=== PATIENT | male | born 1970 | race Caucasian/White ===

== ENCOUNTER 2017-10-20 09:59 | Emergency (ER) | payer SELFPAY ==
[2017-10-20] MEDS ORDERED: MORPHINE 4 MG/ML SYR ONE (10:34)
[2017-10-20] MEDS ORDERED: KETOROLAC 30 MG/ML INJ ONE (10:34)
[2017-10-20 10:35] LABS: Absolute Lymphocytes (CBC) 2.9 K/uL (0.7-4.9); Absolute Monocytes 0.9 K/uL (0.1-1.3); Absolute Neutrophil 8.2 K/uL (1.8-8.0); Basophils % 0.9 % (0-1.3); Eosinophils % 1.9 % (0-4.4); Hematocrit 43.1 % (39.6-49.0); Lymphocytes % 23.6 % (15.3-44.8); MCH 29.9 pg (27.0-35.0); MCV 87.7 fL (80-100); MPV 7.8 fL (7.6-11.3); Monocytes % 7.3 % (3.3-12.3); RBC Red Blood Cell Count 4.91 M/uL (4.33-5.43)
[2017-10-20] MEDS ORDERED: ONDANSETRON 4 MG/2 ML VIAL ONE (10:35)
[2017-10-20] MEDS ORDERED: NA CHLORIDE 0.9% 1,000 ML ONE (10:35)
[2017-10-20 10:45] LABS: Urine Bacteria <20 /HPF (NONE SEEN); Urine RBC 20-50 /HPF (NONE SEEN)
[2017-10-20 10:46] LABS: Urine Culture Reflex Order NOT NEEDED; Urine Mucus 2+ /HPF (NONE SEEN)
[2017-10-20 10:47] LABS: Urine Blood 2+ (NEG); Urine Glucose NEGATIVE (NEG); Urine Protein TRACE (NEG); Urine Specific Gravity 1.025 (1.005-1.030)
[2017-10-20 10:52] LABS: ALT/SGPT 26 U/L (12-78); AST/SGOT 19 U/L (15-37); Albumin 3.8 g/dL (3.4-5.0); Alkaline Phosphatase 79 U/L (45-117); Amylase Level 39 U/L (25-115); BUN Blood Urea Nitrogen 14 mg/dL (7-18); Bicarbonate 28 mmol/L (21-32); Bilirubin Direct < 0.1 mg/dL (0-0.2); Bilirubin Total 0.3 mg/dL (0.2-1.0); Glucose Level 95 mg/dL (74-106); Lipase 80 U/L (73-393); Potassium 4.3 mmol/L (3.5-5.1); Protein, Total 7.5 g/dL (6.4-8.2); Sodium Level 143 mmol/L (136-145)
--- NOTE | 2017-10-20 11:07 | RAD REPORT ---
EXAM DESCRIPTION: CT - Stone Protocol - 10/20/2017 10:47 am CLINICAL HISTORY: Right flank pain radiating to the groin COMPARISON: None. TECHNIQUE: Axial 5 mm thick images were obtained without oral or IV contrast. The [id number] span s the entirety of the system including uppermost abdomen and lung bases. All CT scans are performed using dose optimization technique as appropriate and may include automated exposure control or mA/KV adjustment according to patient size. FINDINGS: Mild right-sided hydronephrosis is present secondary to a 3 millimeter UVJ calculus. Right ureter is mildly edematous as is the right kidney. Punctate 1 mm calcification present upper pole ca lyx on the right. No left-sided calculi or hydronephrosis. No suspicious renal masses. Isodense serafin s and pyelonephritis are not excluded on a stone protocol CT scan. Urinary bladder is partially contr acted. No bladder calculi. No suspicious prostate gland or seminal vesicle finding. Imaged portions of the liver, spleen and pancreas show no suspicious findings on non-contrast imaging . No gallbladder or biliary tree abnormality identified. No significant adrenal finding. No suspicious bowel findings. No hernia, mass or bulky lymphadenopathy noted. No free air, free fluid or inflammatory stranding. No significant bony abnormality. IMPRESSION: Mild right-sided hydronephrosis secondary to a 3 mm UVJ calculus. Isodense masses and pyelonephritis are not excluded on stone protocol technique.
--- NOTE | 2017-10-20 12:17 | ER ---
Nurse's Notes [facility] Name: John Abraham Age: 47 yrs Sex: Male : 1970 Arrival Date: 10/20/2017 Time: 10:04 Bed 20 Private MD: Diagnosis: Urinary calculus, unspecified Presentation: 10/20 10:11 Presenting complaint: Patient states: right flank pain that radiates to the right sv groin. Transition of care: patient was not received from another setting of care. Onset of symptoms was October 20, 2017. Care prior to arrival: None. 10:11 Method Of Arrival: Ambulatory sv 10:11 Acuity: CAREN 3 sv 10:56 Risk Assessment: Do you want to hurt yourself or someone else? Patient reports no aj1 desire to harm self or others. Initial Sepsis Screen: Does the patient meet any 2 criteria? No. Patient's initial sepsis screen is negative. Does the patient have a suspected source of infection? No. Patient's initial sepsis screen is negative. Historical: - Allergies: 10:12 No Known Allergies; sv - Home Meds: 10:12 None [Active]; sv - PMHx: 10:12 Kidney stones; PE; sv - PSHx: 10:12 None; sv - Immunization history:: Adult Immunizations up to date. - Social history:: Smoking status: Patient uses tobacco products, smokes one pack cigarettes per day. - Ebola Screening: : No symptoms or risks identified at this time. Screenin:15 Abuse screen: Denies threats or abuse. Denies injuries from another. Nutritional aj1 screening: No deficits noted. Tuberculosis screening: No symptoms or risk factors identified. 12:49 Fall Risk None identified. aj1 Assessment: 10:15 General: Appears in no apparent distress. uncomfortable, Behavior is calm, cooperative, aj1 appropriate for age. Pain: Complains of pain in anterior aspect of right lateral abdomen Pain radiates to groin Pain currently is 8 out of 10 on a pain scale. at worst was 10 out of 10 on a pain scale. Quality of pain is described as sharp, Pain began at approximately 0730 this morning Is intermittent. Neuro: Level of Consciousness is awake, alert, obeys commands, Oriented to person, place, time, situation, Gait is steady, Speech is normal, Facial symmetry appears normal. Cardiovascular: Patient's skin is warm and dry. Respiratory: Airway is patent Respiratory effort is even, unlabored, Respiratory pattern is regular, symmetrical. GI: Abdomen is distended, Bowel sounds present X 4 quads. Abd is soft and non tender X 4 quads. Patient currently denies diarrhea, vomiting. : Reports burning with urination, urinary frequency, flank pain. EENT: No signs and/or symptoms were reported regarding the EENT system. Derm: No signs and/or symptoms reported regarding the dermatologic system. Skin is pink, warm \T\ dry. normal. Musculoskeletal: No signs and/or symptoms reported regarding the musculoskeletal system. Circulation, motion, and sensation intact. 11:27 Reassessment: Patient appears in no apparent distress at this time. No changes from aj1 previously documented assessment. Patient and/or family updated on plan of care and expected duration. Pain level reassessed. Patient is alert, oriented x 3, equal unlabored respirations, skin warm/dry/pink. 12:49 Reassessment: Patient appears in no apparent distress at this time. No changes from aj1 previously documented assessment. Patient and/or family updated on plan of care and expected duration. Pain level reassessed. Patient is alert, oriented x 3, equal unlabored respirations, skin warm/dry/pink. Vital Signs: 10:12 BP 122 / 83; Pulse 74; Resp 20; Pulse Ox 97% ; Weight 113.4 kg; Height 5 ft. 10 in. sv (177.80 cm); Pain 9/10; 11:27 BP 111 / 64; Pulse 64; Resp 18; Pulse Ox 96% on R/A; aj1 12:49 BP 112 / 75; Pulse 68; Resp 18; Pulse Ox 99% ; aj1 10:12 Body Mass Index 35.87 (113.40 kg, 177.80 cm) sv ED Course: 10:04 Patient arrived in ED. as 10:12 Triage completed. sv 10:13 Sun Walls, RN is Primary Nurse. aj1 10:15 Patient has correct armband on for positive identification. Bed in low position. Call aj1 light in reach. Side rails up X 1. 10:15 No provider procedures requiring assistance completed. aj1 10:16 Raimundo Hansen PA is PHCP. [facility] 10:16 Milton Zelaya MD is Attending Physician. [facility] 10:33 Initial lab(s) drawn, by me, sent to lab. Inserted saline lock: 20 gauge in left aj1 antecubital area, using aseptic technique. Blood collected. 10:46 CT completed. Patient tolerated procedure well. Patient moved to CT via wheelchair. Patient moved back from CT. 10:47 CT Stone Protocol In Process Unspecified. EDMS 12:15 Latricia Suarez MD is Referral Physician. [facility] 12:49 IV discontinued, intact, bleeding controlled, No redness/swelling at site. Pressure aj1 dressing applied. Administered Medications: 10:39 Drug: Zofran 4 mg Route: IVP; Site: left antecubital; aj1 12:51 Follow up: Response: No adverse reaction aj1 10:39 Drug: Ketorolac 30 mg Route: IVP; Site: left antecubital; aj1 12:51 Follow up: Response: No adverse reaction aj1 10:40 Drug: NS 0.9% 1000 ml Route: IV; Rate: 1 bolus; Site: left antecubital; aj1 12:50 Follow up: IV Status: Completed infusion; IV Intake: 1000ml aj1 10:40 Drug: morphine 4 mg Route: IVP; Site: left antecubital; aj1 12:50 Follow up: Response: No adverse reaction aj1 Intake: 12:50 IV: 1000ml; Total: 1000ml. aj1 Outcome: 12:16 Discharge ordered by . [facility] 12:50 Discharged to home ambulatory. aj1 12:50 Condition: good 12:50 Discharge instructions given to patient, Instructed on discharge instructions, follow up and referral plans. no drinking with medication, no driving heavy equipment, medication usage, Demonstrated understanding of instructions, follow-up care, medications, Prescriptions given X 3. 12:51 Patient left the ED. em1 Signatures: Dispatcher [employer] EDMS Sun Walls RN RN aj1 Rema Pillai RN RN sv Mickail, Joel, PA PA jmm Jones, Susan sj Martinez, Grant Jackson em1
--- NOTE | 2017-10-20 12:17 | EDPHYS ---
Physician Documentation [facility] Name: John Abraham Age: 47 yrs Sex: Male : 1970 Arrival Date: 10/20/2017 Time: 10:04 Bed 20 Private MD: ED Physician Milton Zelaya HPI: 10/20 10:23 This 47 yrs old Male presents to ER via Ambulatory with complaints of Abdominal Pain. jmm 10:25 The patient presents with abdominal pain right lower quadrant. Onset: The jmm symptoms/episode began/occurred acutely, 2 hour(s) ago. The symptoms radiate to groin. Associated signs and symptoms: Pertinent positives: dysuria, Pertinent negatives: fever, vomiting. This is a 47 year old male with a history of PE that presents to the ED with right flank pain beginning acutely this morning approx 2 hours ago. Patient states he had a kidney stone 20 years ago. The patient radiates to his right groin. Denies fever, denies vomiting. . Historical: - Allergies: 10:12 No Known Allergies; sv - Home Meds: 10:12 None [Active]; sv - PMHx: 10:12 Kidney stones; PE; sv - PSHx: 10:12 None; sv - Immunization history:: Adult Immunizations up to date. - Social history:: Smoking status: Patient uses tobacco products, smokes one pack cigarettes per day. - Ebola Screening: : No symptoms or risks identified at this time. ROS: 10:25 Cardiovascular: Negative for chest pain, palpitations, and edema, Respiratory: Negative jmm for shortness of breath, cough, wheezing, and pleuritic chest pain. 10:25 Constitutional: Negative for fever. 10:25 Abdomen/GI: Positive for abdominal pain, nausea. 10:25 Back: Positive for flank pain. 10:25 All other systems are negative. Exam: 10:25 Head/Face: atraumatic. Eyes: EOMI, no conjunctival erythema appreciated ENT: Moist jmm Mucus Membranes Neck: Trachea midline, Supple 10:25 Constitutional: The patient appears alert, awake, uncomfortable. 10:25 Cardiovascular: Rate: normal, Rhythm: regular. 10:25 Respiratory: the patient does not display signs of respiratory distress, Respirations: normal. 10:25 Abdomen/GI: Inspection: abdomen appears normal, Bowel sounds: normal, Palpation: soft, mild abdominal tenderness, in the right lower quadrant. 10:25 Back: CVA tenderness, is absent. 10:25 Musculoskeletal/extremity: ROM: intact in all extremities. 10:25 Skin: Appearance: Color: normal in color. 10:25 Neuro: Orientation: is normal, Mentation: is normal, Memory: is normal, Gait: is steady. 10:25 Psych: Behavior/mood is pleasant, cooperative. Vital Signs: 10:12 BP 122 / 83; Pulse 74; Resp 20; Pulse Ox 97% ; Weight 113.4 kg; Height 5 ft. 10 in. sv (177.80 cm); Pain 9/10; 11:27 BP 111 / 64; Pulse 64; Resp 18; Pulse Ox 96% on R/A; aj1 12:49 BP 112 / 75; Pulse 68; Resp 18; Pulse Ox 99% ; aj1 10:12 Body Mass Index 35.87 (113.40 kg, 177.80 cm) sv MDM: 10:22 Patient medically screened. [facility] 12:15 Data reviewed: vital signs, nurses notes, lab test result(s), radiologic studies, CT [facility] scan. Counseling: I had a detailed discussion with the patient and/or guardian regarding: the historical points, exam findings, and any diagnostic results supporting the discharge/admit diagnosis, lab results, radiology results, the need for outpatient follow up, to return to the emergency department if symptoms worsen or persist or if there are any questions or concerns that arise at home. 10/20 10:24 Order name: Amylase, Serum [facility] 10/20 10:24 Order name: Basic Metabolic Panel [facility] 10/20 10:24 Order name: CBC with Diff; Complete Time: 11:24 [facility] 10/20 10:24 Order name: Creatinine for Radiology; Complete Time: 11:24 [facility] 10/20 10:24 Order name: Hepatic Function [facility] 10/20 10:24 Order name: Lipase; Complete Time: 11:24 [facility] 10/20 10:24 Order name: Urine Microscopic Only; Complete Time: 11:24 [facility] 10/20 10:24 Order name: CT Stone Protocol; Complete Time: 11:24 [facility] 10/20 10:24 Order name: Amylase Level; Complete Time: 11:24 [facility] 10/20 10:24 Order name: Basic Metabolic Panel; Complete Time: 11:24 [facility] 10/20 10:24 Order name: Liver (Hepatic) Function; Complete Time: 11:24 [facility] 10/20 10:27 Order name: Urine Dipstick--Ancillary (enter results); Complete Time: 11:24 [facility] 10/20 10:24 Order name: IV Saline Lock; Complete Time: 10:30 [facility] 10/20 10:24 Order name: Labs collected and sent; Complete Time: 10:30 [facility] 10/20 10:24 Order name: Urine Dipstick-Ancillary (obtain specimen); Complete Time: 10:26 [facility] Administered Medications: 10:39 Drug: Zofran 4 mg Route: IVP; Site: left antecubital; aj1 12:51 Follow up: Response: No adverse reaction aj1 10:39 Drug: Ketorolac 30 mg Route: IVP; Site: left antecubital; aj1 12:51 Follow up: Response: No adverse reaction aj1 10:40 Drug: NS 0.9% 1000 ml Route: IV; Rate: 1 bolus; Site: left antecubital; aj1 12:50 Follow up: IV Status: Completed infusion; IV Intake: 1000ml aj1 10:40 Drug: morphine 4 mg Route: IVP; Site: left antecubital; aj1 12:50 Follow up: Response: No adverse reaction aj1 Disposition: 17:13 Co-signature as Attending Physician, Milton Zelaya MD. rn Disposition: 10/20/17 12:16 Discharged to Home. Impression: Urinary calculus, unspecified. - Condition is Stable. - Discharge Instructions: Kidney Stones. - Prescriptions for Tylenol- Codeine #3 300-30 mg Oral Tablet - take 1 tablet by ORAL route every 6 hours As needed; 12 tablet. Zofran 4 mg Oral Tablet - take 1 tablet by ORAL route every 12 hours As needed; 20 tablet. Flomax 0.4 mg Oral Capsule, Sust. Release 24 hr - take 1 capsule by ORAL route once daily 1/2 hour following the same meal each day; 10 capsule. - Medication Reconciliation Form, Thank You Letter, Antibiotic Education, Prescription Opioid Use form. - Follow up: Latricia Suarez MD; When: 2 - 3 days; Reason: Continuance of care. Signatures: Dispatcher [employer] [facility] Sun Walls RN RN aj1 Freya, RemaSANDHYA morris RN, Joel, PA PA jmm Nieto, Roman, MD MD rn Martinez, Grant em1 Corrections: (The following items were deleted from the chart) 12:51 12:16 10/20/2017 12:16 Discharged to Home. Impression: Urinary calculus, unspecified. em1 Condition is Stable. Forms are Medication Reconciliation Form, Thank You Letter, Antibiotic Education, Prescription Opioid Use. Follow up: Latricia Suarez; When: 2 - 3 days; Reason: Continuance of care. elinor
== END 2017-10-20 12:51 | disposition home or self-care (01) ==
LOC: ER 09:59
DX: N20.9 Urinary calculus, unspecified (principal); F17.210 Nicotine dependence, cigarettes, uncomplicated; Z87.442 Personal history of urinary calculi
CPT/HCPCS: 36415; 74176; 76377; 80048; 80076; 81003; 81015; 82150; 83690; 85025; 96361; 96374; 96375; 99284; J2405; J7030

== ENCOUNTER 2018-05-01 21:01 | Emergency (ER) | payer SELFPAY ==
[2018-05-01] MEDS ORDERED: NA CHLORIDE 0.9% 500 ML ONE (22:55)
[2018-05-01] MEDS ORDERED: MEPERIDINE HCL 25 MG/0.5 ML ONE (22:55)
[2018-05-01 23:02] LABS: Absolute Lymphocytes (CBC) 4.1 K/uL (0.7-4.9); Absolute Monocytes 1.1 K/uL (0.1-1.3); Absolute Neutrophil 9.9 K/uL (1.8-8.0); Basophils % 1.1 % (0-1.3); Hematocrit 41.9 % (39.6-49.0); Lymphocytes % 26.4 % (15.3-44.8); Monocytes % 6.8 % (3.3-12.3); RBC Red Blood Cell Count 4.81 M/uL (4.33-5.43)
[2018-05-01 23:42] LABS: BUN Blood Urea Nitrogen 14 mg/dL (7-18); Bicarbonate 28 mmol/L (21-32); C-Reactive Protein 8.08 mg/L (<3.00); Glucose Level 98 mg/dL (74-106); Potassium 3.7 mmol/L (3.5-5.1); Sodium Level 141 mmol/L (136-145)
[2018-05-02] MEDS ORDERED: NA CHLORIDE 0.9% 500 ML ONE (00:36)
[2018-05-02 01:38] LABS: Urine Blood TRACE (NEG); Urine Glucose NEGATIVE (NEG); Urine Protein NEGATIVE (NEG)
--- NOTE | 2018-05-02 01:50 | ER ---
Nurse's Notes [facility] Name: John Abraham Age: 47 yrs Sex: Male : 1970 Arrival Date: 05/01/2018 Time: 21:04 Bed 7 Private MD: Diagnosis: Radiculopathy, lumbar region;Subclinical hypothyroidism;Enteritis Presentation: 05/01 21:33 Presenting complaint: Patient states: "I have bad swelling my lower back and I have bad aj1 shooting pains into both of my feet and I just overall have no energy" Patient reports that he noticed the swelling is his back in the last couple of days but the other symptoms have been there for months. Patient reports that he is suppose to take blood thinners because he has had PEs before, but he decided to take himself off of them because he didn't want to take them anymore. States "My lungs hurt sometimes, but I don't have chest pain" Patient also reports shortness of breath on activity and a persistent cough. Transition of care: patient was not received from another setting of care. Onset of symptoms was 2018. Risk Assessment: Do you want to hurt yourself or someone else? Patient reports no desire to harm self or others. Initial Sepsis Screen: Does the patient meet any 2 criteria? No. Patient's initial sepsis screen is negative. Does the patient have a suspected source of infection? No. Patient's initial sepsis screen is negative. Care prior to arrival: None. 21:33 Method Of Arrival: Ambulatory aj1 21:33 Acuity: CAREN 3 aj1 Triage Assessment: 21:38 General: Appears in no apparent distress. comfortable, Behavior is calm, cooperative, aj1 appropriate for age. Pain: Complains of pain in low back area and right calf Pain radiates to right leg and left leg Pain currently is 8 out of 10 on a pain scale. Neuro: Level of Consciousness is awake, alert, obeys commands. Cardiovascular: Heart tones S1 S2 present Patient's skin is warm and dry. Respiratory: Reports shortness of breath on exertion cough that is productive, Airway is patent Respiratory effort is even, unlabored, Respiratory pattern is regular, symmetrical, Breath sounds are clear bilaterally. Historical: - Allergies: 21:38 No Known Allergies; aj1 - Home Meds: 21:38 None [Active]; aj1 - PMHx: 21:38 Kidney stones; PE; aj1 - PSHx: 21:38 None; aj1 - Immunization history:: Flu vaccine is not up to date. - Social history:: Smoking status: Patient uses tobacco products, smokes one pack cigarettes per day. - Ebola Screening: : Patient denies travel to an Ebola-affected area in the 21 days before illness onset. Screenin:26 Abuse screen: Denies threats or abuse. Denies injuries from another. Nutritional ed1 screening: No deficits noted. Tuberculosis screening: No symptoms or risk factors identified. Fall Risk None identified. Assessment: 22:00 Reassessment: I agree with above assessment. lp1 22:26 Reassessment: Patient appears in no apparent distress at this time. No changes from ed1 previously documented assessment. Patient and/or family updated on plan of care and expected duration. Pain level reassessed. Patient is alert, oriented x 3, equal unlabored respirations, skin warm/dry/pink. Patient states symptoms have not improved. 23:51 Reassessment: Patient appears in no apparent distress at this time. Patient and/or ed1 family updated on plan of care and expected duration. Pain level reassessed. Patient is alert, oriented x 3, equal unlabored respirations, skin warm/dry/pink. Patient states feeling better. Patient states symptoms have improved. 05/02 01:02 Reassessment: Patient appears in no apparent distress at this time. Patient and/or ed1 family updated on plan of care and expected duration. Pain level reassessed. Patient is alert, oriented x 3, equal unlabored respirations, skin warm/dry/pink. Patient states feeling better. Patient states symptoms have improved. 03:25 Reassessment: Patient appears in no apparent distress at this time. Patient and/or ed1 family updated on plan of care and expected duration. Pain level reassessed. Patient is alert, oriented x 3, equal unlabored respirations, skin warm/dry/pink. Patient denies pain at this time. Patient states feeling better. Patient states symptoms have improved. Vital Signs: 05/01 21:38 BP 103 / 79; Pulse 72; Resp 18; Temp 97.6; Pulse Ox 98% on R/A; Weight 117.93 kg (R); aj1 Height 5 ft. 10 in. (177.80 cm) (R); Pain 8/10; 22:26 BP 112 / 69; Pulse 71; Resp 16; Pulse Ox 97% on R/A; Pain 8/10; ed1 23:02 BP 105 / 68; Pulse 65; Resp 18; Pulse Ox 98% on R/A; tl2 23:51 BP 92 / 58; Pulse 68; Resp 16; Pulse Ox 96% on R/A; Pain 4/10; ed1 01/14 01:02 BP 104 / 59; Pulse 69; Resp 18; Pulse Ox 97% on R/A; Pain 0/10; ed1 03:25 BP 122 / 74; Pulse 70; Resp 17; Temp 97.4(O); Pulse Ox 100% on R/A; Pain 0/10; ed1 05/01 21:38 Body Mass Index 37.31 (117.93 kg, 177.80 cm) aj1 ED Course: 05/01 21:04 Patient arrived in ED. es 21:38 Triage completed. aj1 21:38 Arm band placed on Patient placed in waiting room, Patient notified of wait time. aj1 22:17 India Duarte LVN is Primary Nurse. ed1 22:26 Patient has correct armband on for positive identification. Placed in gown. Bed in low ed1 position. Call light in reach. Side rails up X 1. Adult w/ patient. gambling monitor on. Pulse ox on. NIBP on. 22:27 Milton Zelaya MD is Attending Physician. rn 22:27 Awaiting ED provider evaluation. ed1 22:53 Initial lab(s) drawn, by ED staff, sent to lab. Inserted saline lock: 20 gauge in right ed1 antecubital area, using aseptic technique. Blood collected. 23:38 Radiology exam delayed due to lab results not completed at this time. (BUN/Creatinine). kw1 23:51 Notified ED physician of vital signs. ed1 14 00:[address] via stretcher. kw1 00:23 CT Lumbar Spine Wo Con In Process Unspecified. EDMS 00:23 CT completed. Patient tolerated procedure well. Patient moved back from CT. kw1 00:24 CT Abd/Pelvis - W/Contrast In Process Unspecified. EDMS 01:05 Appears to be sleeping. Awaiting radiology results. ed1 03:25 No provider procedures requiring assistance completed. IV discontinued, intact, ed1 bleeding controlled, No redness/swelling at site. Pressure dressing applied. Administered Medications: 05/01 22:53 Drug: Demerol 25 mg Route: IVP; Site: right antecubital; tl2 05/02 01:03 Follow up: Response: No adverse reaction; Pain is decreased ed1 05/01 22:53 Drug: NS 0.9% 500 ml Route: IV; Rate: bolus; Site: right antecubital; ed1 05/02 01:03 Follow up: IV Status: Completed infusion; IV Intake: 500ml ed1 00:31 Drug: NS 0.9% 500 ml Route: IV; Rate: bolus; Site: right antecubital; tl2 01:05 Follow up: IV Status: Completed infusion; IV Intake: 500ml ed1 02:25 Follow up: IV Status: Completed infusion; IV Intake: 500ml ed1 01:54 Drug: Flagyl 500 mg Volume: 100 ml; Route: IVPB; Rate: 200 ml/hr; Infused Over: 30 lp1 mins; Site: right antecubital; 02:24 Follow up: Response: No adverse reaction; IV Status: Completed infusion ed1 02:25 Drug: Cipro 400 mg Volume: 200 ml; Route: IVPB; Infused Over: 60 mins; Site: right ed1 antecubital; 03:28 Follow up: IV Status: Completed infusion; IV Intake: 200ml ed1 Intake: 01:03 IV: 500ml; Total: 500ml. ed1 01:05 IV: 500ml; Total: 1000ml. ed1 02:25 IV: 500ml; Total: 1500ml. ed1 03:28 IV: 200ml; Total: 1700ml. ed1 Outcome: 01:49 Discharge ordered by . rn 03:25 Discharged to home ambulatory, with significant other. ed1 03:25 Condition: good 03:25 Discharge instructions given to patient, family, Instructed on discharge instructions, follow up and referral plans. medication usage, Demonstrated understanding of instructions, follow-up care, medications, Prescriptions given X 3. 03:27 Patient left the ED. ed1 Signatures: Dispatcher [employer] EDMS Sun Walls RN RN aj1 Ban Wakefield Roman, MD MD rn India Duarte LVN DIRECT CARE STAFFER ed1 Kina Lowry RN RN lp1 Nabila Becker RN RN tl2 Tamela Briggs kw1 Corrections: (The following items were deleted from the chart) 01:05 01:02 Pulse 69bpm; Resp 18bpm; Pulse Ox 97% RA; Pain 210; ed1 ed1
--- NOTE | 2018-05-02 01:50 | EDPHYS ---
Physician Documentation [facility] Name: John Abraham Age: 47 yrs Sex: Male : 1970 Arrival Date: 05/01/2018 Time: 21:04 Bed 7 Private MD: ED Physician Milton Zelaya HPI: 05/02 00:17 This 47 yrs old Male presents to ER via Ambulatory with complaints of rn Swelling lower back,shooting burning pain in legs. 00:17 The patient presents with pain that is acute. The symptoms are located in the low back. rn Onset: The symptoms/episode began/occurred 4 day(s) ago. The pain radiates to the right leg and left leg. Modifying factors: The patient symptoms are alleviated by nothing, the patient symptoms are aggravated by any movement. Severity of symptoms: At their worst the symptoms were moderate, in the emergency department the symptoms are unchanged. The patient has not experienced similar symptoms in the past. Reports a few days of low back pain, feels swollen, reports pain shoots down both legs, has been having severe fatigue and generalized weakness over last few months, no fever, no IV drug use. Denies trauma or previous back problems. Also reports feeling constipation and "no power" when having bowel movements. + urinary urgency but no incontinence.. Historical: - Allergies: 05/01 21:38 No Known Allergies; aj1 - Home Meds: 21:38 None [Active]; aj1 - PMHx: 21:38 Kidney stones; PE; aj1 - PSHx: 21:38 None; aj1 - Immunization history:: Flu vaccine is not up to date. - Social history:: Smoking status: Patient uses tobacco products, smokes one pack cigarettes per day. - Ebola Screening: : Patient denies travel to an Ebola-affected area in the 21 days before illness onset. ROS: 05/02 00:19 Constitutional: Negative for fever, chills, and weight loss, Eyes: Negative for injury, rn pain, redness, and discharge, Neck: Negative for injury, pain, and swelling, Cardiovascular: Negative for chest pain, palpitations, and edema, Respiratory: Negative for shortness of breath, cough, wheezing, and pleuritic chest pain, Abdomen/GI: + constipation Back: + low back pain MS/Extremity: Negative for injury and deformity, Skin: Negative for injury, rash, and discoloration, Neuro: Negative for headache, and seizure. Exam: 00:19 Constitutional: Overweight male, no acute distress, appears fatigued. Head/Face: rn Normocephalic, atraumatic. Eyes: Pupils equal round and reactive to light, extra-ocular motions intact. Lids and lashes normal. Conjunctiva and sclera are non-icteric and not injected. Cornea within normal limits. Periorbital areas with no swelling, redness, or edema. ENT: dry MM Neck: Trachea midline, no thyromegaly or masses palpated, and no cervical lymphadenopathy. Supple, full range of motion without nuchal rigidity, or vertebral point tenderness. No Meningismus. Cardiovascular: Regular rate and rhythm with a normal S1 and S2. No gallops, murmurs, or rubs. No JVD. No pulse deficits. Respiratory: Lungs have equal breath sounds bilaterally, clear to auscultation Abdomen/GI: soft, non-tender Back: + lower back tenderness perispinal, no deformities, no skin changes, no fluctuance MS/ Extremity: Pulses equal, no cyanosis. Neurovascular intact. Full, normal range of motion. Equal circumference. Neuro: Awake and alert, GCS 15, oriented to person, place, time, and situation. Cranial nerves II-XII grossly intact. Motor strength 5/5 in all extremities. Sensory grossly intact. Vital Signs: 05/01 21:38 BP 103 / 79; Pulse 72; Resp 18; Temp 97.6; Pulse Ox 98% on R/A; Weight 117.93 kg (R); aj1 Height 5 ft. 10 in. (177.80 cm) (R); Pain 8/10; 22:26 BP 112 / 69; Pulse 71; Resp 16; Pulse Ox 97% on R/A; Pain 8/10; ed1 23:02 BP 105 / 68; Pulse 65; Resp 18; Pulse Ox 98% on R/A; tl2 23:51 BP 92 / 58; Pulse 68; Resp 16; Pulse Ox 96% on R/A; Pain 4/10; ed1 05/02 01:02 BP 104 / 59; Pulse 69; Resp 18; Pulse Ox 97% on R/A; Pain 0/10; ed1 03:25 BP 122 / 74; Pulse 70; Resp 17; Temp 97.4(O); Pulse Ox 100% on R/A; Pain 0/10; ed1 05/01 21:38 Body Mass Index 37.31 (117.93 kg, 177.80 cm) aj1 MDM: 05/01 22:27 Patient medically screened. rn 05/02 01:47 Differential diagnosis: arthritis, chronic back pain, Osteoarthritis ruptured disc, rn colitis, enteritis, hypothyroidism. Data reviewed: vital signs, nurses notes, lab test result(s), radiologic studies, CT scan, and as a result, I will discharge patient. Counseling: I had a detailed discussion with the patient and/or guardian regarding: the historical points, exam findings, and any diagnostic results supporting the discharge/admit diagnosis, lab results, radiology results, the need for outpatient follow up, to return to the emergency department if symptoms worsen or persist or if there are any questions or concerns that arise at home. Response to treatment: the patient's symptoms have mildly improved after treatment, and as a result, I will discharge patient. Special discussion: I discussed with the patient/guardian in detail that at this point there is no indication for admission to the hospital. It is understood, however, that if the symptoms persist or worsen the patient needs to return immediately for re-evaluation. Based on the history and exam findings, there is no indication for further emergent testing or inpatient evaluation. I discussed with the patient/guardian the need to see the primary care provider for further evaluation of the symptoms. ED course: Pt with subclinical hypothyroidism, enteritis, and likely lumbar radiculopathy, will dc home with abx for enteritis, steroids for radiculopathy, and instruction for pcp f/u for thyroid management. . 05/01 22:38 Order name: CBC with Diff; Complete Time: 23:43 rn 05/01 22:38 Order name: Basic Metabolic Panel; Complete Time: 23:52 rn 05/01 22:38 Order name: Westergren Sedrate; Complete Time: 23:43 rn 05/01 22:38 Order name: C-Reactive Protein; Complete Time: 23:52 rn 05/01 22:38 Order name: Bullock Screen Profile; Complete Time: 23:43 rn 05/01 22:38 Order name: TSH; Complete Time: 23:52 rn 05/01 22:38 Order name: CT Lumbar Spine Wo Con rn 05/01 22:38 Order name: CT Abd/Pelvis - W/Contrast rn 05/01 22:38 Order name: T4 Free; Complete Time: 23:52 rn 05/02 00:52 Order name: Urine Dipstick--Ancillary (enter results) ag4 05/01 22:38 Order name: IV Start; Complete Time: 22:53 rn 05/02 00:19 Order name: Urine Dipstick-Ancillary (obtain specimen); Complete Time: 01:06 rn Administered Medications: 05/01 22:53 Drug: Demerol 25 mg Route: IVP; Site: right antecubital; tl2 05/02 01:03 Follow up: Response: No adverse reaction; Pain is decreased ed1 05/01 22:53 Drug: NS 0.9% 500 ml Route: IV; Rate: bolus; Site: right antecubital; ed1 05/02 01:03 Follow up: IV Status: Completed infusion; IV Intake: 500ml ed1 00:31 Drug: NS 0.9% 500 ml Route: IV; Rate: bolus; Site: right antecubital; tl2 01:05 Follow up: IV Status: Completed infusion; IV Intake: 500ml ed1 02:25 Follow up: IV Status: Completed infusion; IV Intake: 500ml ed1 01:54 Drug: Flagyl 500 mg Volume: 100 ml; Route: IVPB; Rate: 200 ml/hr; Infused Over: 30 lp1 mins; Site: right antecubital; 02:24 Follow up: Response: No adverse reaction; IV Status: Completed infusion ed1 02:25 Drug: Cipro 400 mg Volume: 200 ml; Route: IVPB; Infused Over: 60 mins; Site: right ed1 antecubital; 03:28 Follow up: IV Status: Completed infusion; IV Intake: 200ml ed1 Disposition: 05/02/18 01:49 Discharged to Home. Impression: Radiculopathy, lumbar region, Subclinical hypothyroidism, Enteritis. - Condition is Stable. - Discharge Instructions: Lumbosacral Radiculopathy, Back Exercises. - Prescriptions for Cipro 500 mg Oral Tablet - take 1 tablet by ORAL route every 12 hours for 10 days; 20 tablet. Flagyl 500 mg Oral Tablet - take 1 tablet by ORAL route every 8 hours for 10 days; 30 tablet. Medrol (Ventura) 4 mg Oral Tablets, Dose Pack - take 1 tablet by ORAL route as directed - follow package instructions; 1 packet. - Medication Reconciliation Form, Thank You Letter, Antibiotic Education, Prescription Opioid Use form. - Follow up: Private Physician; When: As needed; Reason: Recheck today's complaints, Re-evaluation by your physician. - Problem is an ongoing problem. - Symptoms have improved. Signatures: Dispatcher [employer] EDMS Sun Walls RN RN aj1 Milton Zelaya MD MD rn Riggs, Erika, LVN INSPECTOR ALIGNING ed1 Kina Lowry RN RN lp1 Nabila Becker RN RN tl2 Corrections: (The following items were deleted from the chart) 03:27 01:49 05/02/2018 01:49 Discharged to Home. Impression: Radiculopathy, lumbar region; ed1 Subclinical hypothyroidism; Enteritis. Condition is Stable. Forms are Medication Reconciliation Form, Thank You Letter, Antibiotic Education, Prescription Opioid Use. Follow up: Private Physician; When: As needed; Reason: Recheck today's complaints, Re-evaluation by your physician. Problem is an ongoing problem. Symptoms have improved. rn
[2018-05-02] MEDS ORDERED: METRONIDAZOLE 500mg IVPB 500 MG/100 ML BAG IV ONE (01:59)
[2018-05-02] MEDS ORDERED: CIPROFLOXACIN 400mg IV 400 MG/200 ML BAG IV ONE (01:59)
--- NOTE | 2018-05-02 08:41 | RAD REPORT ---
EXAM DESCRIPTION: CTAbdomen Pelvis W Contrast - 05/02/2018 7:00 am CLINICAL HISTORY: Abdominal pain. IV contrast only COMPARISON: Stone Protocol dated 10/20/2017 TECHNIQUE: Biphasic CT imaging of the abdomen and pelvis was performed with 100 ml non-ionic IV cont rast. All CT scans are performed using dose optimization technique as appropriate and may include automated exposure control or mA/KV adjustment according to patient size. FINDINGS: Linear subsegmental atelectasis in the posterior lung bases. Mild fatty liver is noted with several small low-density lesions. No aggressive liver lesion or intra hepatic biliary dilatation. The spleen, pancreas, adrenal glands and kidneys are within normal limits . No bowel obstruction, free air, free fluid or abscess. The appendix is normal. No evidence of signi ficant lymphadenopathy. Mild lumbosacral degenerative changes. IMPRESSION: No acute intra-abdominal or pelvic finding.
--- NOTE | 2018-05-02 08:47 | RAD REPORT ---
EXAM DESCRIPTION: CT - Spine Lumbar Wo Con - 05/02/2018 6:59 am CLINICAL HISTORY: Radiculopathy. weakness lower ext, back pain COMPARISON: No comparisons TECHNIQUE: Axial noncontrast CT imaging of the lumbar spine was performed with coronal and sagittal re-formatted images. All CT scans are performed using dose optimization technique as appropriate and may include automated exposure control or mA/KV adjustment according to patient size. FINDINGS: No acute lumbar spine fracture seen. No aggressive marrow pattern or malalignment. Paraspinal tissues are normal in thickness. No paraspinal abscess or hematoma seen. Degenerative disc disease with vacuum disc degeneration and posterior disc bulge at L5-S1. IMPRESSION: No acute lumbar spine abnormality. Moderate spondylosis L5-S1. Consider MRI follow-up for assessment of disc disease if clinically desired.
== END 2018-05-02 03:27 | disposition home or self-care (01) ==
LOC: ER 21:01
DX: M54.16 Radiculopathy, lumbar region (principal); E02 Subclinical iodine-deficiency hypothyroidism; K52.9 Noninfective gastroenteritis and colitis, unspecified; Z72.0 Tobacco use; F17.210 Nicotine dependence, cigarettes, uncomplicated
CPT/HCPCS: 36415; 72131; 74177; 80048; 81003; 84439; 84443; 85025; 85652; 86140; 86308; 96361; 96365; 96367; 96375; 99285; J0744; J2175; Q9967

== ENCOUNTER 2018-05-23 21:33 | Emergency (ER) | payer SELFPAY ==
[2018-05-24 00:03] LABS: Absolute Lymphocytes (CBC) 2.7 K/uL (0.7-4.9); Absolute Monocytes 0.9 K/uL (0.1-1.3); Absolute Neutrophil 9.6 K/uL (1.8-8.0); Basophils % 0.5 % (0-1.3); Eosinophils % 2.5 % (0-4.4); Hematocrit 40.2 % (39.6-49.0); Monocytes % 6.7 % (3.3-12.3); RBC Red Blood Cell Count 4.58 M/uL (4.33-5.43)
[2018-05-24 00:15] LABS: ALT/SGPT 28 U/L (12-78); AST/SGOT 15 U/L (15-37); Albumin 3.2 g/dL (3.4-5.0); Alkaline Phosphatase 79 U/L (45-117); BUN Blood Urea Nitrogen 16 mg/dL (7-18); Bicarbonate 27 mmol/L (21-32); Bilirubin Direct < 0.1 mg/dL (0-0.2); Bilirubin Total 0.2 mg/dL (0.2-1.0); Glucose Level 182 mg/dL (74-106); Lipase 78 U/L (73-393); Potassium 3.8 mmol/L (3.5-5.1); Protein, Total 6.5 g/dL (6.4-8.2); Sodium Level 143 mmol/L (136-145)
[2018-05-24] MEDS ORDERED: ONDANSETRON 4 MG/2 ML VIAL ONE (00:31)
[2018-05-24] MEDS ORDERED: NA CHLORIDE 0.9% 1,000 ML ONE (00:31)
[2018-05-24] MEDS ORDERED: MORPHINE 4 MG/ML SYR ONE (00:31)
--- NOTE | 2018-05-24 01:53 | ER ---
Nurse's Notes [facility] Name: John Abraham Age: 48 yrs Sex: Male : 1970 Arrival Date: 05/23/2018 Time: 21:37 Bed 28 Private MD: Osmany Willingham Diagnosis: Generalized abdominal pain Presentation: 05/23 22:23 Presenting complaint: Patient states: that he is having constipation, last bm 2 days fc ago. Also feels nausea, bloated and is having abd pain. Was seen here some time back and given antibiotics for "stomach infection" and was told by Dr Larson to stop medications. Transition of care: patient was not received from another setting of care. Onset of symptoms was May 23, 2018. Risk Assessment: Do you want to hurt yourself or someone else? Patient reports no desire to harm self or others. Initial Sepsis Screen: Does the patient meet any 2 criteria? No. Patient's initial sepsis screen is negative. Does the patient have a suspected source of infection? No. Patient's initial sepsis screen is negative. 22:23 Method Of Arrival: Ambulatory 22:23 Acuity: CAREN 3 22:26 Care prior to arrival: Medication(s) given: stool softeners today. fc Historical: - Allergies: 22:28 No Known Allergies; fc - Home Meds: 22:28 None [Active]; fc - PMHx: 22:28 Kidney stones; PE; fc - PSHx: 22:28 None; fc - Immunization history:: Last tetanus immunization: up to date Flu vaccine is not up to date. - Social history:: Smoking status: Patient uses tobacco products, smokes one pack cigarettes per day. Patient/guardian denies using alcohol, street drugs. - Ebola Screening: : Patient negative for fever greater than or equal to 101.5 degrees Fahrenheit, and additional compatible Ebola Virus Disease symptoms Patient denies exposure to infectious person Patient denies travel to an Ebola-affected area in the 21 days before illness onset. Screenin/05 02:04 Abuse screen: Denies threats or abuse. Denies injuries from another. Nutritional rv screening: No deficits noted. Tuberculosis screening: No symptoms or risk factors identified. Fall Risk None identified. Assessment: 05/23 23:00 General: Appears in no apparent distress. Behavior is calm, cooperative, appropriate ca1 for age. 23:00 Pain: Complains of pain in abdomen Pain does not radiate. Pain currently is 7 out of 10 ca1 on a pain scale. Neuro: Level of Consciousness is awake, alert, obeys commands, Oriented to person, place, time, situation. Cardiovascular: Heart tones S1 S2 present Capillary refill < 3 seconds Patient's skin is warm and dry. Respiratory: Airway is patent Respiratory effort is even, unlabored, Respiratory pattern is regular, symmetrical, Breath sounds are clear bilaterally. GI: Abdomen is round non-distended, Bowel sounds present X 4 quads. Abd is soft Abdomen is tender to palpation in right upper quadrant and right lower quadrant Reports constipation, nausea, vomiting. : No signs and/or symptoms were reported regarding the genitourinary system. EENT: No signs and/or symptoms were reported regarding the EENT system. Derm: Skin is intact, is healthy with good turgor, Skin is pink, warm \\T\\ dry. Musculoskeletal: Circulation, motion, and sensation intact. 05/24 00:10 Reassessment: Patient appears in no apparent distress at this time. Patient and/or ca1 family updated on plan of care and expected duration. Pain level reassessed. Patient is alert, oriented x 3, equal unlabored respirations, skin warm/dry/pink. 01:19 Reassessment: Patient appears in no apparent distress at this time. Patient and/or rv family updated on plan of care and expected duration. Pain level reassessed. Patient is alert, oriented x 3, equal unlabored respirations, skin warm/dry/pink. PATIENT CAME BACK FROM RADIOLOGY, AWAITING REPORT. Vital Signs: 05/23 22:28 BP 123 / 67; Pulse 74; Resp 18; Temp 98.1(O); Pulse Ox 94% on R/A; Weight 127.01 kg fc (R); Height 5 ft. 10 in. (177.80 cm) (R); Pain 7/10; 05/24 00:10 BP 115 / 74; Pulse 73; Resp 18; Pulse Ox 95% on R/A; ca1 00:15 BP 113 / 71; Pulse 68; Resp 17; Pulse Ox 99% on R/A; rv 01:00 BP 110 / 73; Pulse 70; Resp 16; Pulse Ox 97% on R/A; rv 05/23 22:28 Body Mass Index 40.18 (127.01 kg, 177.80 cm) ED Course: 05/23 21:37 Patient arrived in ED. es 21:38 Osmany Willingham DO is Private Physician. es 22:26 Triage completed. fc 22:28 Arm band placed on Patient placed in an exam room, on a stretcher. fc 22:40 Silvia Balderas FNP-C [facility]. kb 22:40 Lon Jean MD is Attending Physician. kb 23:00 Leslye Dubon, RN is Primary Nurse. ca1 23:40 Inserted saline lock: 20 gauge in left antecubital area, using aseptic technique. Blood ca1 collected. 02 01:19 CT Abd/Pelvis - W/Contrast In Process Unspecified. EDMS 02:04 Patient has correct armband on for positive identification. Bed in low position. Call rv light in reach. Adult w/ patient. Pulse ox on. NIBP on. 02:04 No provider procedures requiring assistance completed. IV discontinued, bleeding rv controlled, No redness/swelling at site. Pressure dressing applied. Administered Medications: 00:20 Drug: NS 0.9% 1000 ml Route: IV; Rate: 1000 ml; Site: left antecubital; ca1 01:51 Follow up: IV Status: Completed infusion rv 00:21 Drug: Zofran 4 mg Route: IVP; Site: left antecubital; ca1 01:51 Follow up: Response: Pain is decreased rv 00:23 Drug: morphine 4 mg Route: IVP; Site: left antecubital; ca1 01:51 Follow up: Response: Pain is decreased rv Outcome: 01:52 Discharge ordered by . kb 02:05 Discharged to home ambulatory. rv 02:05 Condition: good 02:05 Discharge instructions given to patient, Instructed on discharge instructions, follow up and referral plans. medication usage, Demonstrated understanding of instructions, follow-up care, medications, Prescriptions given X 2. 02:05 Patient left the ED. rv Signatures: Dispatcher [employer] EDMI Silvia Balderas FNP-C FNP-Ckb Salyer, Edna es Chretien, Felicia RN RN Dillon Andrade RN RN rv Leslye Dubon RN RN ca1
--- NOTE | 2018-05-24 01:53 | EDPHYS ---
Physician Documentation [facility] Name: John Abraham Age: 48 yrs Sex: Male : 1970 Arrival Date: 05/23/2018 Time: 21:37 Bed 28 Private MD: Osmany Willingham ED Physician Lon Jean HPI: 05/24 00:09 This 48 yrs old Male presents to ER via Ambulatory with complaints of kb Constipation, Flank Pain. 00:09 The patient presents with abdominal pain in the left lower quadrant. Onset: The kb symptoms/episode began/occurred 1 month(s) ago, and became worse today. The symptoms do not radiate. Associated signs and symptoms: Pertinent positives: nausea and vomiting, constipation, Pertinent negatives: anorexia, blood in stools, chest pain, diarrhea, dysuria, fever, headache, hematuria, palpitations, shortness of breath, testicular pain, vomiting blood. The symptoms are described as constant. Modifying factors: The symptoms are alleviated by nothing, the symptoms are aggravated by food. Severity of pain: At its worst the pain was moderate in the emergency department the pain is unchanged. The patient has not experienced similar symptoms in the past. The patient has been recently seen by a physician:. Pt reports he was here a month ago and told he had a severe intestinal infection and was put on [address] Willingham took him off of the antibiotics at the follow up appt because he didn't see an infection. "My stomach hasn't been right since then, but the pain got really bad today." Reports no BM in a couple of days. Historical: - Allergies: 05/23 22:28 No Known Allergies; fc - Home Meds: 22:28 None [Active]; fc - PMHx: 22:28 Kidney stones; PE; fc - PSHx: 22:28 None; fc - Immunization history:: Last tetanus immunization: up to date Flu vaccine is not up to date. - Social history:: Smoking status: Patient uses tobacco products, smokes one pack cigarettes per day. Patient/guardian denies using alcohol, street drugs. - Ebola Screening: : Patient negative for fever greater than or equal to 101.5 degrees Fahrenheit, and additional compatible Ebola Virus Disease symptoms Patient denies exposure to infectious person Patient denies travel to an Ebola-affected area in the 21 days before illness onset. ROS: 05/24 00:08 Constitutional: Negative for fever, chills, and weight loss, ENT: Negative for injury, kb pain, and discharge, Neck: Negative for injury, pain, and swelling, Cardiovascular: Negative for chest pain, palpitations, and edema, Respiratory: Negative for shortness of breath, cough, wheezing, and pleuritic chest pain, Back: Negative for injury and pain, : Negative for injury, bleeding, discharge, and swelling, MS/Extremity: Negative for injury and deformity, Skin: Negative for injury, rash, and discoloration, Neuro: Negative for headache, weakness, numbness, tingling, and seizure. Abdomen/GI: Positive for abdominal pain, nausea and vomiting, constipation, Negative for diarrhea, abdominal cramps, abdominal distension, anorexia. Exam: 00:08 Constitutional: This is a well developed, well nourished patient who is awake, alert, kb and in no acute distress. Head/Face: Normocephalic, atraumatic. Chest/axilla: Normal chest wall appearance and motion. Nontender with no deformity. No lesions are appreciated. Cardiovascular: Regular rate and rhythm with a normal S1 and S2. No gallops, murmurs, or rubs. Normal PMI, no JVD. No pulse deficits. Respiratory: Lungs have equal breath sounds bilaterally, clear to auscultation and percussion. No rales, rhonchi or wheezes noted. No increased work of breathing, no retractions or nasal flaring. Back: No spinal tenderness. No costovertebral tenderness. Full range of motion. Skin: Warm, dry with normal turgor. Normal color with no rashes, no lesions, and no evidence of cellulitis. MS/ Extremity: Pulses equal, no cyanosis. Neurovascular intact. Full, normal range of motion. Neuro: Awake and alert, GCS 15, oriented to person, place, time, and situation. Cranial nerves II-XII grossly intact. Motor strength 5/5 in all extremities. Sensory grossly intact. Cerebellar exam normal. Normal gait. 00:08 Abdomen/GI: Inspection: abdomen appears normal, Bowel sounds: normal, in all quadrants, Palpation: soft, in all quadrants, mild abdominal tenderness, in the left upper quadrant, moderate abdominal tenderness, in the left lower quadrant. Vital Signs: 05/23 22:28 BP 123 / 67; Pulse 74; Resp 18; Temp 98.1(O); Pulse Ox 94% on R/A; Weight 127.01 kg fc (R); Height 5 ft. 10 in. (177.80 cm) (R); Pain 7/10; 05/24 00:10 BP 115 / 74; Pulse 73; Resp 18; Pulse Ox 95% on R/A; ca1 00:15 BP 113 / 71; Pulse 68; Resp 17; Pulse Ox 99% on R/A; rv 01:00 BP 110 / 73; Pulse 70; Resp 16; Pulse Ox 97% on R/A; rv 02 22:28 Body Mass Index 40.18 (127.01 kg, 177.80 cm) fc MDM: 05/23 22:40 Patient medically screened. kb 05/24 00:08 Data reviewed: vital signs, nurses notes. Data interpreted: Pulse oximetry: on room air kb is 94 %. Interpretation: normal. 01:50 Counseling: I had a detailed discussion with the patient and/or guardian regarding: the kb historical points, exam findings, and any diagnostic results supporting the discharge/admit diagnosis, lab results, radiology results, the need for outpatient follow up, a family practitioner, to return to the emergency department if symptoms worsen or persist or if there are any questions or concerns that arise at home. 05/23 23:32 Order name: Lipase; Complete Time: 00:16 kb 05/23 23:32 Order name: Hepatic Function; Complete Time: 00:16 kb 05/23 23:32 Order name: Basic Metabolic Panel; Complete Time: 00:16 kb 05/23 23:32 Order name: CBC with Diff; Complete Time: 00:07 kb 05/24 00:16 Order name: CT Abd/Pelvis - W/Contrast kb 05/23 23:32 Order name: IV Saline Lock; Complete Time: 00:01 kb 05/23 23:32 Order name: Labs collected and sent; Complete Time: 00:01 kb Administered Medications: 00:20 Drug: NS 0.9% 1000 ml Route: IV; Rate: 1000 ml; Site: left antecubital; ca1 01:51 Follow up: IV Status: Completed infusion rv 00:21 Drug: Zofran 4 mg Route: IVP; Site: left antecubital; ca1 01:51 Follow up: Response: Pain is decreased rv 00:23 Drug: morphine 4 mg Route: IVP; Site: left antecubital; ca1 01:51 Follow up: Response: Pain is decreased rv Disposition: 05/24/18 01:52 Discharged to Home. Impression: Generalized abdominal pain. - Condition is Stable. - Discharge Instructions: Abdominal Pain, Adult, [id number]. - Prescriptions for Bentyl 20 mg Oral Tablet - take 1 tablet by ORAL route every 6 hours As needed; 20 tablet. Zofran 4 mg Oral Tablet - take 1 tablet by ORAL route every 6 hours As needed; 20 tablet. - Medication Reconciliation Form, Thank You Letter, Antibiotic Education, Prescription Opioid Use form. - Follow up: Emergency Department; When: As needed; Reason: Worsening of condition. Follow up: Private Physician; When: 2 - 3 days; Reason: Recheck today's complaints, Continuance of care, Re-evaluation by your physician. Signatures: Dispatcher [employer] EDDC Silvia Balderas, TEAGAN-C TEAGAN-Maria Elena Ash RN RN Dillon Andrade, RN RN rv Acob, Leslye RN RN ca1 Corrections: (The following items were deleted from the chart) 02:05 01:52 05/24/2018 01:52 Discharged to Home. Impression: Generalized abdominal pain. rv Condition is Stable. Forms are Medication Reconciliation Form, Thank You Letter, Antibiotic Education, Prescription Opioid Use. Follow up: Emergency Department; When: As needed; Reason: Worsening of condition. Follow up: Private Physician; When: 2 - 3 days; Reason: Recheck today's complaints, Continuance of care, Re-evaluation by your physician. kb
--- NOTE | 2018-05-24 20:17 | RAD REPORT ---
EXAM DESCRIPTION: CT - Abdomen Pelvis W Contrast - 05/24/2018 1:49 am CLINICAL HISTORY: The patient is 48 years old and and is Male; iv contrast only; abd pain COMPARISON: CT abdomen and pelvis with IV contrast dated May 01, 2018 (report only) TECHNIQUE: Axial computed tomography images of the abdomen and pelvis with intravenous contrast. Sag ittal and coronal reformatted images were created and reviewed. This CT exam was performed using one or more of the following dose reduction techniques: Automated exposure control, adjustment of the mA and/or kV according to patient size, and/or use of iterative reconstruction technique. FINDINGS: LUNG BASES: Mild dependent subsegmental atelectasis versus scarring. Subcentimeter granulo ma in the left lung base. ABDOMEN: LIVER: Subcentimeter right hepatic hypodensities, likely cysts. GALLBLADDER AND BILE DUCTS: Unremarkable. No calcified stones. No ductal dilation. PANCREAS: Unremarkable. No mass. No ductal dilation. SPLEEN: Unremarkable. No splenomegaly. ADRENALS: Right adrenal nodule measuring 1.1 x 1.0 cm. KIDNEYS AND URETERS: Unremarkable. No solid mass. No hydronephrosis. STOMACH AND BOWEL: Unremarkable. No obstruction. No mucosal thickening. PELVIS: APPENDIX: The appendix is seen and is within normal limits. BLADDER: Unremarkable. No mass. REPRODUCTIVE: Unremarkable as visualized. ABDOMEN and PELVIS: INTRAPERITONEAL SPACE: Unremarkable. No free air. No significant fluid collection. BONE/JOINTS: No acute fracture. No dislocation. SOFT TISSUES: Unremarkable. VASCULATURE: Unremarkable. No abdominal aortic aneurysm. LYMPH NODES: Right mediastinal/hilar calcified lymph nodes. IMPRESSION: 1. No acute abdominal or pelvic abnormality. 2. Right adrenal nodule, present on prior exam. 3. Mediastinal and right hilar calcified lymph nodes. Electronically signed by Cj Bradshaw DO 05/24/2018 1:34 ETHNOGRAPHIC MATERIALS CONSERVATOR Due to temporary technical issues with the PACS/Fluency reporting system, reports are being signed by the in house radiologist as a courtesy to ensure prompt reporting. The interpreting radiologist is f ully responsible for the content of the report.
== END 2018-05-24 02:05 | disposition home or self-care (01) ==
LOC: ER 21:33
DX: R10.84 Generalized abdominal pain (principal); F17.210 Nicotine dependence, cigarettes, uncomplicated; Z87.442 Personal history of urinary calculi
CPT/HCPCS: 36415; 74177; 80048; 80076; 83690; 85025; 96361; 96374; 96375; 99284; J2405; J7030; Q9967

== ENCOUNTER 2018-09-13 14:11 | Emergency (ER) | payer SELFPAY ==
--- NOTE | 2018-09-13 14:51 | RAD REPORT ---
EXAM DESCRIPTION: CT - Spine Lumbar Wo Con - 09/13/2018 2:42 pm CLINICAL HISTORY: Fall, back pain COMPARISON: CT lumbar spine April 2018 TECHNIQUE: Thin section axial imaging of the lumbar spine was performed. Sagittal and coronal recon struction images were generated and reviewed. All CT scans are performed using dose optimization technique as appropriate and may include automated exposure control or mA/KV adjustment according to patient size. FINDINGS: Lumbar bodies are normal in height and normal in alignment. No fracture or acute vertebral body finding seen. No paraspinal mass or hematoma. No disc herniation identified. Central canal detail is inherently limited. L5-S1 disc space is narrow ed. Mild posterior endplate spurring changes are present. No acute SI joint finding. No sacral ala abnormality. IMPRESSION: No fracture or acute bony lumbar finding. Central canal detail is inherently limited. No gross evidence for disc herniation or significant cent ral canal finding. L5-S1 degenerative disc disease similar to April 2018.
[2018-09-13] MEDS ORDERED: DEXAMETHASONE 10 MG/ML VIAL ONE (15:04)
[2018-09-13] MEDS ORDERED: ONDANSETRON 4 MG/2 ML VIAL ONE (15:05)
[2018-09-13] MEDS ORDERED: KETOROLAC 30 MG/ML INJ ONE (15:05)
[2018-09-13] MEDS ORDERED: MORPHINE 4 MG/ML SYR ONE (15:05)
[2018-09-13] MEDS ORDERED: DIAZEPAM 5 MG TABLET ONE (15:05)
[2018-09-13] MEDS ORDERED: NA CHLORIDE 0.9% 1,000 ML ONE (15:06)
[2018-09-13 15:12] LABS: Absolute Lymphocytes (CBC) 2.9 K/uL (0.7-4.9); Absolute Monocytes 0.6 K/uL (0.1-1.3); Absolute Neutrophil 7.1 K/uL (1.8-8.0); Eosinophils % 2.5 % (0-4.4); Hematocrit 44.9 % (39.6-49.0); Lymphocytes % 26.6 % (15.3-44.8); MPV 8.1 fL (7.6-11.3); Monocytes % 5.4 % (3.3-12.3); RBC Red Blood Cell Count 5.12 M/uL (4.33-5.43)
[2018-09-13 15:25] LABS: ALT/SGPT 29 U/L (12-78); AST/SGOT 16 U/L (15-37); Albumin 3.5 g/dL (3.4-5.0); Alkaline Phosphatase 99 U/L (45-117); BUN Blood Urea Nitrogen 10 mg/dL (7-18); Bicarbonate 25 mmol/L (21-32); Bilirubin Total 0.1 mg/dL (0.2-1.0); Glucose Level 114 mg/dL (74-106); Potassium 4.1 mmol/L (3.5-5.1); Protein, Total 7.3 g/dL (6.4-8.2); Sodium Level 142 mmol/L (136-145)
--- NOTE | 2018-09-13 15:40 | ER ---
Nurse's Notes [facility] Name: John Abraham Age: 48 yrs Sex: Male : 1970 Arrival Date: 09/13/2018 Time: 14:14 Bed 24 Private MD: Diagnosis: Fall due to bumping against object;Low back pain Presentation: 09/13 14:16 Presenting complaint: Low back pain / after he slipped in shower and landed on buttocks yesterday. Transition of care: patient was not received from another setting of care. Onset of symptoms was September 12, 2018. Risk Assessment: Do you want to hurt yourself or someone else? Patient reports no desire to harm self or others. Initial Sepsis Screen: Does the patient meet any 2 criteria? No. Patient's initial sepsis screen is negative. Does the patient have a suspected source of infection? No. Patient's initial sepsis screen is negative. Care prior to arrival: Medication(s) given: Motrin, at 1200. 14:16 Method Of Arrival: Ambulatory hb 14:16 Acuity: CAREN 4 hb Triage Assessment: 14:35 General: Appears in no apparent distress. well groomed, well developed, well nourished, sg Behavior is calm, cooperative, appropriate for age. Historical: - Allergies: 14:18 No Known Allergies; hb - PMHx: 14:18 Kidney stones; PE; hb - PSHx: 14:18 None; hb - Immunization history:: Adult Immunizations up to date. - Social history:: Smoking status: Patient uses tobacco products, smokes one pack cigarettes per day. - Ebola Screening: : No symptoms or risks identified at this time. - Family history:: not pertinent. Screenin:35 Abuse screen: Denies threats or abuse. Denies injuries from another. Nutritional sg screening: No deficits noted. Tuberculosis screening: No symptoms or risk factors identified. Never had TB. Fall Risk None identified. Assessment: 14:30 General: Appears in no apparent distress. well groomed, well developed, well nourished, sg Behavior is calm, cooperative, appropriate for age. Pain: Complains of pain in right mid back and left mid back and lumbar spine Quality of pain is described as aching. Neuro: Level of Consciousness is awake, alert, obeys commands, Oriented to person, place, time, situation, Program Engagement Director are equal bilaterally Moves all extremities. Full function Gait is steady, Speech is normal, Facial symmetry appears normal, Pupils are PERRLA. Cardiovascular: Capillary refill is brisk in bilateral fingers Patient's skin is warm and dry. Chest pain is denied. Respiratory: Airway is patent Respiratory effort is even, unlabored, Respiratory pattern is regular, symmetrical. GI: Abdomen is round non-distended, obese, Reports tolerance of fluids, tolerance of food. : No signs and/or symptoms were reported regarding the genitourinary system. EENT: No signs and/or symptoms were reported regarding the EENT system. Derm: Skin is pink, warm \T\ dry. Musculoskeletal: Circulation, motion, and sensation intact. Range of motion: intact in all extremities, Swelling absent. Vital Signs: 14:17 BP 138 / 81; Pulse 80; Resp 16; Temp 98.1; Pulse Ox 100% on R/A; Weight 122.47 kg; hb Height 5 ft. 10 in. (177.80 cm); Pain 8/10; 15:30 BP 132 / 80; Pulse 77; Resp 17; Pulse Ox 99% on R/A; Pain 7/10; sg 16:20 BP 134 / 77; Pulse 72; Resp 16; Pulse Ox 99% on R/A; Pain 5/10; sg 14:17 Body Mass Index 38.74 (122.47 kg, 177.80 cm) hb ED Course: 14:14 Patient arrived in ED. rg4 14:14 Osmany Willingham DO is Private Physician. rg4 14:17 Triage completed. hb 14:18 Arm band placed on. hb 14:19 Niles Mccurdy MD is Attending Physician. [facility] 14:22 Nate Pineda, SANDHYA is Primary Nurse. sg 14:30 Patient has correct armband on for positive identification. Bed in low position. Call sg light in reach. Side rails up X2. Pulse ox on. NIBP on. Warm blanket given. Head of bed elevated. 14:42 CT Lumbar Spine Wo Con In Process Unspecified. EDMS 14:42 CT completed. Patient tolerated procedure well. Patient moved to CT. Patient moved back nj from CT. 15:00 Initial lab(s) drawn, by me, sent to lab. Inserted saline lock: 20 gauge in left lt1 antecubital area, using aseptic technique. 15:39 John Allred MD is Referral Physician. [facility] 16:15 No provider procedures requiring assistance completed. IV discontinued, intact, sg bleeding controlled, No redness/swelling at site. Pressure dressing applied. Administered Medications: 14:50 Drug: Valium 5 mg Route: PO; sg 15:05 Drug: NS 0.9% 1000 ml Route: IV; Rate: 1 bolus; Site: left antecubital; sg 15:05 Drug: TORadol 30 mg Route: IVP; Site: left antecubital; sg 15:05 Drug: Decadron - Dexamethasone 10 mg Route: IVP; Site: left antecubital; sg 15:05 Drug: morphine 4 mg Route: IVP; Site: left antecubital; sg 15:05 Drug: Zofran 4 mg Route: IVP; Site: left antecubital; sg Outcome: 15:39 Discharge ordered by MD. [facility] 16:15 Discharged to home ambulatory, with family. 16:15 Condition: good 16:15 Discharge instructions given to patient, campground caretaker, Instructed on discharge instructions, follow up and referral plans. medication usage, safety practices, Demonstrated understanding of instructions, follow-up care, medications, Prescriptions given X 4. 16:19 Patient left the ED. ss Signatures: Dispatcher [employer] EDNate Yip RN RN sg Anderson, Corey, MD MD cha Smirch, Shelby, RN RN Pooja Goodman RN RN hb Garcia, Sonia rg4 Ronal, Alpesh Bassett, Stephanie lt1 Corrections: (The following items were deleted from the chart) 14:18 14:16 Care prior to arrival: None. hb hb
--- NOTE | 2018-09-13 15:40 | EDPHYS ---
Physician Documentation [facility] Name: John Abraham Age: 48 yrs Sex: Male : 1970 Arrival Date: 09/13/2018 Time: 14:14 Bed 24 Private MD: ED Physician Niles Mccurdy HPI: 09/13 14:30 This 48 yrs old Male presents to ER via Ambulatory with complaints of Fall elian Injury, Back Pain. 14:30 Details of fall: The patient fell from an upright position, while standing. Onset: The elian symptoms/episode began/occurred yesterday. Associated injuries: The patient sustained injury to the low back. Severity of symptoms: At their worst the symptoms were moderate, in the emergency department the symptoms are unchanged. The patient has not experienced similar symptoms in the past. Historical: - Allergies: 14:18 No Known Allergies; hb - PMHx: 14:18 Kidney stones; PE; hb - PSHx: 14:18 None; hb - Immunization history:: Adult Immunizations up to date. - Social history:: Smoking status: Patient uses tobacco products, smokes one pack cigarettes per day. - Ebola Screening: : No symptoms or risks identified at this time. - Family history:: not pertinent. ROS: 14:30 Constitutional: Negative for fever, chills, and weight loss, Eyes: Negative for injury, elian pain, redness, and discharge, ENT: Negative for injury, pain, and discharge, Neck: Negative for injury, pain, and swelling, Cardiovascular: Negative for chest pain, palpitations, and edema, Respiratory: Negative for shortness of breath, cough, wheezing, and pleuritic chest pain, Abdomen/GI: Negative for abdominal pain, nausea, vomiting, diarrhea, and constipation, : Negative for injury, bleeding, discharge, and swelling, MS/Extremity: Negative for injury and deformity, Skin: Negative for injury, rash, and discoloration, Neuro: Negative for headache, weakness, numbness, tingling, and seizure, Psych: Negative for depression, anxiety, suicide ideation, homicidal ideation, and hallucinations, Allergy/Immunology: Negative for hives, rash, and allergies, Endocrine: Negative for neck swelling, polydipsia, polyuria, polyphagia, and marked weight changes. 14:30 Back: Positive for decreased range of motion, pain with movement. Exam: 14:30 Constitutional: This is a well developed, well nourished patient who is awake, alert, elian and in no acute distress. Head/Face: Normocephalic, atraumatic. Eyes: Pupils equal round and reactive to light, extra-ocular motions intact. Lids and lashes normal. Conjunctiva and sclera are non-icteric and not injected. Cornea within normal limits. Periorbital areas with no swelling, redness, or edema. ENT: Nares patent. No nasal discharge, no septal abnormalities noted. Tympanic membranes are normal and external auditory canals are clear. Oropharynx with no redness, swelling, or masses, exudates, or evidence of obstruction, uvula midline. Mucous membranes moist. Neck: Trachea midline, no thyromegaly or masses palpated, and no cervical lymphadenopathy. Supple, full range of motion without nuchal rigidity, or vertebral point tenderness. No Meningismus. Chest/axilla: Normal chest wall appearance and motion. Nontender with no deformity. No lesions are appreciated. Cardiovascular: Regular rate and rhythm with a normal S1 and S2. No gallops, murmurs, or rubs. Normal PMI, no JVD. No pulse deficits. Respiratory: Lungs have equal breath sounds bilaterally, clear to auscultation and percussion. No rales, rhonchi or wheezes noted. No increased work of breathing, no retractions or nasal flaring. Abdomen/GI: Soft, non-tender, with normal bowel sounds. No distension or tympany. No guarding or rebound. No evidence of tenderness throughout. Male : Normal genitalia with no discharge or lesions. Skin: Warm, dry with normal turgor. Normal color with no rashes, no lesions, and no evidence of cellulitis. MS/ Extremity: Pulses equal, no cyanosis. Neurovascular intact. Full, normal range of motion. Neuro: Awake and alert, GCS 15, oriented to person, place, time, and situation. Cranial nerves II-XII grossly intact. Motor strength 5/5 in all extremities. Sensory grossly intact. Cerebellar exam normal. Normal gait. Psych: Awake, alert, with orientation to person, place and time. Behavior, mood, and affect are within normal limits. 14:30 Back: pain, that is mild, that is moderate, ROM is decreased, normal spinal alignment noted, CVA tenderness, is absent, vertebral tenderness, is appreciated at T10, T11, T12 and lumbar spine, muscle spasm, is appreciated in the left low back, left mid back, right mid back and right low back. Vital Signs: 14:17 BP 138 / 81; Pulse 80; Resp 16; Temp 98.1; Pulse Ox 100% on R/A; Weight 122.47 kg; hb Height 5 ft. 10 in. (177.80 cm); Pain 8/10; 15:30 BP 132 / 80; Pulse 77; Resp 17; Pulse Ox 99% on R/A; Pain 7/10; sg 16:20 BP 134 / 77; Pulse 72; Resp 16; Pulse Ox 99% on R/A; Pain 5/10; sg 14:17 Body Mass Index 38.74 (122.47 kg, 177.80 cm) hb MDM: 14:20 [facility] 15:40 Data reviewed: vital signs, nurses notes, lab test result(s), radiologic studies, CT elian scan. 09/13 14:29 Order name: CBC with Diff; Complete Time: 15:26 [facility] 09/13 14:29 Order name: Comprehensive Metabolic Panel; Complete Time: 15:26 [facility] 09/13 14:29 Order name: CT Lumbar Spine Wo Con; Complete Time: 15:26 [facility] 09/13 16:02 Order name: Urine Dipstick--Ancillary (enter results) bd 09/13 14:29 Order name: Urine Dipstick-Ancillary (obtain specimen); Complete Time: 15:59 [facility] Administered Medications: 14:50 Drug: Valium 5 mg Route: PO; sg 15:05 Drug: NS 0.9% 1000 ml Route: IV; Rate: 1 bolus; Site: left antecubital; sg 15:05 Drug: TORadol 30 mg Route: IVP; Site: left antecubital; sg 15:05 Drug: Decadron - Dexamethasone 10 mg Route: IVP; Site: left antecubital; sg 15:05 Drug: morphine 4 mg Route: IVP; Site: left antecubital; sg 15:05 Drug: Zofran 4 mg Route: IVP; Site: left antecubital; sg Disposition: 09/13/18 15:39 Discharged to Home. Impression: Fall due to bumping against object, Low back pain. - Condition is Stable. - Discharge Instructions: Back Pain, Adult, Chronic Back Pain, Musculoskeletal Pain, Pain Without a Known Cause, Back Injury Prevention, [id number], Back Pain, Adult, [id number], Back Exercises, [id number]. - Prescriptions for Ibuprofen 600 mg Oral Tablet - take 1 tablet by ORAL route every 6 hours As needed take with food; 30 tablet. Tylenol- Codeine #3 300-30 mg Oral Tablet - take 2 tablet by ORAL route every 6 hours As needed; 30 tablet. Valium 5 mg Oral Tablet - take 1 tablet by ORAL route every 8 hours As needed; 20 tablet. Prednisone 20 mg Oral Tablet - take 2 tablet by ORAL route once daily for 5 days; 10 tablet. - Medication Reconciliation Form, Thank You Letter, Antibiotic Education, Prescription Opioid Use form. - Work release form (09/13/18 16:20). ss - Follow up: Private Physician; When: 2 - 3 days; Reason: Recheck today's complaints, Continuance of care, Re-evaluation by your physician. Follow up: John Allred; When: 2 - 3 days; Reason: Recheck today's complaints, Continuance of care, Re-evaluation by your physician. - Problem is new. - Symptoms have improved. Signatures: Dispatcher [employer] EDMS Nate Pineda RN RN Niles Toledo MD MD cha Smirch, Shelby, RN RN ss Baxter, Heather, RN RN Corrections: (The following items were deleted from the chart) 16:19 15:39 09/13/2018 15:39 Discharged to Home. Impression: Fall due to bumping against ss object; Low back pain. Condition is Stable. Discharge Instructions: Back Pain, Adult, Chronic Back Pain, Musculoskeletal Pain, Pain Without a Known Cause, Back Injury Prevention, [id number], Back Pain, Adult, [id number], Back Exercises, [id number]-[id number]. Prescriptions for Ibuprofen 600 mg Oral Tablet - take 1 tablet by ORAL route every 6 hours As needed take with food; 30 tablet, Tylenol-Codeine #3 300-30 mg Oral Tablet - take 2 tablet by ORAL route every 6 hours As needed; 30 tablet, Valium 5 mg Oral Tablet - take 1 tablet by ORAL route every 8 hours As needed; 20 tablet, Prednisone 20 mg Oral Tablet - take 2 tablet by ORAL route once daily for 5 days; 10 tablet. and Forms are Medication Reconciliation Form, Thank You Letter, Antibiotic Education, Prescription Opioid Use. Follow up: Private Physician; When: 2 - 3 days; Reason: Recheck today's complaints, Continuance of care, Re-evaluation by your physician. Follow up: John Allred; When: 2 - 3 days; Reason: Recheck today's complaints, Continuance of care, Re-evaluation by your physician. Problem is new. Symptoms have improved. elian
[2018-09-13 17:11] LABS: Urine Blood 1+ (NEG); Urine Glucose NEGATIVE (NEG); Urine Protein NEGATIVE (NEG); Urine pH 6.5 (5.0-7.0)
== END 2018-09-13 16:19 | disposition home or self-care (01) ==
LOC: ER 14:11
DX: M54.5 Low back pain (principal); W18.00XA Striking against unspecified object with subsequent fall, initial encounter; F17.210 Nicotine dependence, cigarettes, uncomplicated; Z86.711 Personal history of pulmonary embolism
CPT/HCPCS: 36415; 72131; 80053; 81003; 85025; 96374; 96375; 99284; J1100; J2405; J7030